=== PATIENT | male | born 1960 | race American Indian/Alaskan Native ===

== ENCOUNTER 2024-03-12 09:45 | Inpatient (IN) | payer OTHER ==
[~2024-03-12] VITALS: Ht 177.8 cm; Wt 96.9 kg
[~2024-03-12 09:45] MED LIST: NORCO 325 MG-51 TAB PO
[2024-03-12] MEDS ORDERED: NS 1,000 ML IV ONE ×2 (10:00→11:30)
[2024-03-12 10:26] LABS: BASO % 0.2 % (0.0-2.0); EOS # 0.1 K/mm3 (0.0-0.7); GRAN # 9.5 K/mm3 (1.4-6.5); GRAN % 78.9 % (42.2-75.2); HEMATOCRIT 44.8 % (42.0-52.0); HEMOGLOBIN 15.2 g/dl (13.5-18.0); LYMPH # 1.8 K/mm3 (1.2-3.4); LYMPH % 14.8 % (20.0-51.0); MEAN CELL VOLUME 87 fl (80.0-100.0); MEAN CORPUSCULAR HEMOGLOBIN 30 pg (27-31); MEAN CORPUSCULAR HGB CONC 34 g/dl (33.0-37.0); MEAN PLATELET VOLUME 10.8 fl (7.4-10.4); MONO # 0.6 K/mm3 (0.1-0.6); MONO % 4.8 % (1.7-9.3); PLATELET COUNT 238 K/mm3 (130-400); RED BLOOD COUNT 5.15 M/mm3 (4.20-5.60); REDCELL DISTRIBUTION WIDTH-CV 13.9 % (11.5-14.5)
[2024-03-12 10:43] LABS: ALANINE AMINOTRANSFERASE 23 U/L (0-55); ALBUMIN 4.1 g/dL (3.4-4.8); ALKALINE PHOSPHATASE 70 U/L (40-150); ANION GAP 16 mmol/L (7-16); AST,SGOT 24 U/L (5-34); BILIRUBIN,TOTAL 0.8 mg/dL (0.2-1.2); BLOOD UREA NITROGEN 19 mg/dL (8-26); CALCIUM 10.6 mg/dL (8.4-10.2); CHLORIDE 103 mEq/L (98-107); CREATININE, serum 1.84 mg/dL (0.72-1.25); GLUCOSE 111 mg/dL (70-99); POTASSIUM 4.6 mEq/L (3.5-4.5); SODIUM 137 mEq/L (136-145); TOTAL PROTEIN 8.1 g/dl (6.2-8.1)
[2024-03-12 10:46] LABS: ALCOHOL(ethanol),MEDICAL < 10 mg/dL (0-10); SALICYLATE < 5.0 mg/dL (15.0-30.0)
[2024-03-12 11:03] LABS: COLLECTION METHOD CLEAN CATCH
[2024-03-12 11:12] LABS: URINE APPEARANCE CLEAR (CLEAR/HAZY); URINE BLOOD NEGATIVE (NEGATIVE); URINE COLOR YELLOW (YELLOW); URINE GLUCOSE NEGATIVE (NEGATIVE); URINE KETONE NEGATIVE (NEGATIVE); URINE NITRATE NEGATIVE (NEGATIVE); URINE PROTEIN(semi-quant) NEGATIVE (NEGATIVE); URINE UROBILINOGEN 0.2 E.U/dL (0.2-1.0)
[2024-03-12] MEDS ORDERED: MASON NATURAL2000 IU PO (11:36)
[2024-03-12] MEDS ORDERED: ZOLOFT 100MG100 MG PO (11:37)
[2024-03-12] MEDS ORDERED: TOPROL XL 50MG50 MG PO (11:38)
[2024-03-12] MEDS ORDERED: LOTREL 10 MG-201 CAP PO (11:39)
[2024-03-12] MEDS ORDERED: EPA FISH OIL1 SGL PO (11:39)
[2024-03-12] MEDS ORDERED: VIAGRA100 M1 PO (11:43)
[2024-03-12 11:46] LABS: TRICYCLIC ANTIDEPRESS URINE NEGATIVE (NEGATIVE)
[2024-03-12] MEDS ORDERED: ASPIRIN E.C. 8181 MG PO (12:13)
[2024-03-12] MEDS ORDERED: LIPITOR 80MG80 MG PO (12:13)
[2024-03-12 12:51] VITALS: BP 122/100; PULSE 64; TEMP 98.1
--- NOTE | 2024-03-12 12:51 | NUR ---
PATIENT ARRIVED FROM ER VIA COT ACCOMPANIED BY ER STAFF. PATIENT DROWSY BUT NOT IN DISTRESS. ABLE TO MOVE SELF TO ICU BED.
--- NOTE | 2024-03-12 13:00 | NUR ---
AT ADMISSION, PATIENT DESCRIBED THAT HE WAS HAVING A NIGHT TERROR THAT HE WAS IN [place]. HE PROCEEDED TO SAY THAT AT THAT TIME BE DID NOT WANT TO BE ALIVE AND HAD TAKEN THE MEDICATIONS IN AN ATTEMPT TO HARM HIMSELF. SAID THAT HE HAD BEEN HEARING THE BOOMS FROM [place] LAST NIGHT AND WAS HAVING A DIFFICULT TIME WITH THAT. THE NIGHT TERRORS ARE NOT A NEW THING; PATINT HAS A THERAPIST , CRICKET EDWARDS. PATIENT LAST SAW THERAPIST YESTERDAY AFTERNOON. PATIENT STATES HE HAS NEVER BEEN SUICIDAL IN THE PAST AND DOES NOT FEEL SUICIDAL NOW. NO EVIDENCE OF SUSTAINED ERECTION OR ERECTILE EMERGENCY. POISON CONTROL INSTRUCTED RN TO WATCH FOR HYPOTENSION. PATIENT BELIEVES HE TOOK APPROXIMATELY 20 PILLS OF SILDENAFIL (VIAGRA) AND 2 AMLODIPINE. PATIENT HAD TWO PERSCRIPTION BOTTLES OF VIAGRA AND TOOK THE ENTIRETY OF ONE OF THEM. AND DAUGHTER IN LAW AT BEDSIDE - PATIENT ALERT, ORIENTED AND PLEASANT. RN WILL CONTINUE WITH CURRENT PLAN OF CARE.
[2024-03-12] MEDS ORDERED: Acetaminophen 325 MG TAB PO PRN (14:00)
[2024-03-12] MEDS ORDERED: NS 1,000 ML IV SCH (14:00)
[2024-03-12] MEDS ORDERED: Ondansetron 4 MG/2 ML VIAL IV PRN (14:00)
[2024-03-12] MEDS ORDERED: Albuterol/Ipratropium 3 MG-0.5 MG/3 ML Neb Soln IH PRN (14:30)
[2024-03-12 16:00] VITALS: BP 117/61; PULSE 64; TEMP 97.9
--- NOTE | 2024-03-12 16:36 | NUR ---
PATIENT IS ALERT AND ORIENTED X 4. HE IS MUCH LESS DROWSY AND SAY HE "FEELS MUCH BETTER". HE IS VERY APPRECIATIVE AND DOES NOT HAVE SUICIDAL IDEATION. NO HYPOTENSION NOTED TO THIS POINT.
[2024-03-12 20:00] VITALS: BP 124/88; BP 95/65; BP 95/68; PULSE 111; PULSE 63; TEMP 97.9
[2024-03-12 22:00] VITALS: BP 154/111; BP 98/46; PULSE 115; PULSE 62
--- NOTE | 2024-03-12 22:21 | NUR ---
PT IS RESTING IN THE BED WITH HIS EYES CLOSED. HE IS ALERT AND ORIENTED. ONE IV WITH NS INFUSING. HE IS USING THE URINAL. NO FAMILY AT THE BEDSIDE. HE STATES HE DOES NOT FEEL LIKE HARMING HIMSELF. NO OTHER COMPLAINTS AT THIS TIME.
--- NOTE | 2024-03-12 22:40 | NUR ---
UNABLE TO DO A BEHAVIORAL HEALTH ASSESSMENT. THE PATIENT IN INTUBATED AND SEDATED.
[2024-03-13] VITALS (9 sets, daily range): BP systolic 85–127; BP diastolic 37–73; PULSE 48–66; TEMP 97.7–98.2
--- NOTE | 2024-03-13 | NUR ---
PT NOT PLACED ON CPAP TONIGHT D/T SUICIDAL RISK STATUS. RISKS OF HOSE/CORDS USED FOR SELF HARM ARE GREATER THAN THE BENEFITS OF CPAP. PT/RN AWARE OF THE SITUATION. PT CURRENTLY SLEEPING ON RA WITH STABLE VITAL SIGNS AND IN NO DISTRESS
[2024-03-13 04:29] LABS: BASO % 0.4 % (0.0-2.0); EOS # 0.1 K/mm3 (0.0-0.7); EOS % 1.2 % (0.0-4.0); GRAN # 6.4 K/mm3 (1.4-6.5); GRAN % 76.6 % (42.2-75.2); HEMATOCRIT 38.7 % (42.0-52.0); LYMPH # 1.3 K/mm3 (1.2-3.4); LYMPH % 15.3 % (20.0-51.0); MEAN CELL VOLUME 90 fl (80.0-100.0); MEAN CORPUSCULAR HEMOGLOBIN 30 pg (27-31); MEAN CORPUSCULAR HGB CONC 33 g/dl (33.0-37.0); MEAN PLATELET VOLUME 9.9 fl (7.4-10.4); MONO # 0.5 K/mm3 (0.1-0.6); MONO % 6.3 % (1.7-9.3); PLATELET COUNT 203 K/mm3 (130-400); RED BLOOD COUNT 4.32 M/mm3 (4.20-5.60); REDCELL DISTRIBUTION WIDTH-CV 14.1 % (11.5-14.5)
[2024-03-13 04:49] LABS: CALCIUM 9.4 mg/dL (8.4-10.2); CREATININE, serum 1.57 mg/dL (0.72-1.25); HEMOGLOBIN 12.8 g/dl (13.5-18.0); MAGNESIUM 1.7 mg/dL (1.6-2.6); POTASSIUM 4.3 mEq/L (3.5-4.5)
[2024-03-13] MEDS ORDERED: COLCRYS0.6 MG PO (05:38)
[2024-03-13] MEDS ORDERED: ZYRTEC 10MG10 MG PO (05:40)
[2024-03-13] MEDS ORDERED: MELATIN 3 MG-11 TAB PO (05:43)
[2024-03-13] MEDS ORDERED: FLONASEALLERGY NS (05:45)
[2024-03-13] MEDS ORDERED: WIXELA 250-501 EACH IH (05:49)
[2024-03-13] MEDS ORDERED: PROAIR HFA0.09 MG/AC IH (05:55)
[2024-03-13] MEDS ORDERED: Albuterol 0.083% Neb Soln 2.5 MG/3 ML UD IH PRN (09:45)
[2024-03-13] MEDS ORDERED: Formoterol 20 MCG,Budesonide 0.5 MG IH SCH (19:00)
[2024-03-13] MEDS ORDERED: Topiramate 25 MG TAB PO SCH (21:00)
[2024-03-13] MEDS ORDERED: Atorvastatin 80 MG TAB PO SCH (21:00)
[2024-03-13] MEDS ORDERED: Prazosin 1 MG CAP PO SCH (21:00)
--- NOTE | 2024-03-13 23:24 | NUR ---
PT IS RESTING IN THE BED. HE IS ALERT AND ORIENTED. HE DOES STILL HAVE SOME SLIGHT TREMORS. SPEAKING TO THE PATIENT HE HAS HAD THEM IN THE PAST, SO THIS IS NOT NEW TO HIM. HE HAS A CPAP AT THE BEDSIDE. HE USES A URINAL. HE HAS IV FLUIDS INFUSING IN A PERIPHERAL IV. NO FAMILY AT THE BEDSIDE AND NO OTHER COMPLAINTS AT THIS TIME.
[2024-03-14] VITALS: BP 116/66; PULSE 53; TEMP 98.7
[2024-03-14 04:00] VITALS: BP 124/70; PULSE 48
[2024-03-14 06:00] LABS: BASO % 0.1 % (0.0-2.0); EOS # 0.2 K/mm3 (0.0-0.7); EOS % 1.8 % (0.0-4.0); GRAN # 6.1 K/mm3 (1.4-6.5); GRAN % 73.5 % (42.2-75.2); LYMPH # 1.4 K/mm3 (1.2-3.4); LYMPH % 17.4 % (20.0-51.0); MEAN CELL VOLUME 87 fl (80.0-100.0); MEAN CORPUSCULAR HEMOGLOBIN 29 pg (27-31); MEAN CORPUSCULAR HGB CONC 33 g/dl (33.0-37.0); MEAN PLATELET VOLUME 9.9 fl (7.4-10.4); MONO # 0.6 K/mm3 (0.1-0.6); PLATELET COUNT 201 K/mm3 (130-400); RED BLOOD COUNT 4.47 M/mm3 (4.20-5.60); REDCELL DISTRIBUTION WIDTH-CV 13.9 % (11.5-14.5)
[2024-03-14 06:14] LABS: CALCIUM 9.8 mg/dL (8.4-10.2); CREATININE, serum 1.44 mg/dL (0.72-1.25); MAGNESIUM 1.6 mg/dL (1.6-2.6)
--- NOTE | 2024-03-14 07:30 | NUR ---
Report received from ANABELL Phillips. Reviewed overnight events and labs. IVF infusing per orders. Pt resting in bed with cpap in place. Uses urinal independently. Pt on SI precuations with Q1HR checks. Pt denies needs at this time. Call light within reach. WIll continue with POC.
[2024-03-14 08:00] VITALS: BP 135/77; PULSE 69; TEMP 97.9
--- NOTE | 2024-03-14 09:24 | NUR ---
storage worker met with patient and his , Vinnie, Macie# [phone], to discuss discharge planning. Patient reports to live in [place] with his . P[facility] is Dr. Romeo at the [facility], [facility] [place]. Insurance is [employer]. No DPOA-HC and not currently interested in completing one. DME is CPAP and Oxygen whom he gets through the [facility]. Patient reports to be independent with ADLS and is able to transport himself to and from appointments. Patient reports he came to the hospital because he took some pills after having a bad nightmare. SW explained the procedure of having [place] screen once he is medically cleared. Patient and were agreeable to having the screen completed when he is medically cleared. Discharge plan: pending [place] screen
[2024-03-14 10:00] VITALS: BP 141/87; PULSE 65
--- NOTE | 2024-03-14 11:06 | NUR ---
This RN called posion control to get update. Posion control signed off on patient.
--- NOTE | 2024-03-14 11:18 | NUR ---
All medications returned to patient's , Vinnie who will take them home.
[2024-03-14 12:00] VITALS: BP 139/78; PULSE 58; TEMP 98.6
--- NOTE | 2024-03-14 13:08 | NUR ---
Norma porter started via zoom.
--- NOTE | 2024-03-14 14:06 | NUR ---
Notified Dr. Do that pt was going to [facility] per Norma. She stated she would start working on dishcarge orders.
[2024-03-14] MEDS ORDERED: TOPAMAX 25MG25 M1 PO (14:18)
--- NOTE | 2024-03-14 15:15 | NUR ---
Discharge instructions provided. Safety plan given to stewarttieallison and . Mental health resources reviewed. New scrpit called into hy-vee by Dr. Do. Pt updated about change. Stressed importance of scheduling follow up appoinments with PCP and psych. Both verbalized understanding. INT discontinued. Pt escorted out at 1505 via wheelchair.
== END 2024-03-14 15:05 | disposition home or self-care (01) | DRG 917 ==
LOC: COL.ER 09:45 → ICU 11:02
PROVIDERS: Emergency Medicine; Internal Medicine; ADMIT Internal Medicine
DX: T46.7X2A Poisoning by peripheral vasodilators, intentional self-harm, initial encounter (principal); G92.8 Other toxic encephalopathy; N17.9 Acute kidney failure, unspecified; F43.10 Post-traumatic stress disorder, unspecified; G47.33 Obstructive sleep apnea (adult) (pediatric); I25.10 Atherosclerotic heart disease of native coronary artery without angina pectoris; I12.9 Hypertensive chronic kidney disease with stage 1 through stage 4 chronic kidney disease, or unspecified chronic kidney disease; N18.9 Chronic kidney disease, unspecified; N52.9 Male erectile dysfunction, unspecified; I95.9 Hypotension, unspecified; J45.909 Unspecified asthma, uncomplicated; F51.5 Nightmare disorder; I25.2 Old myocardial infarction; Z79.82 Long term (current) use of aspirin; Z79.899 Other long term (current) drug therapy; Z99.89 Dependence on other enabling machines and devices; Z23 Encounter for immunization
CPT/HCPCS: J1650; J7030